=== PATIENT | male | born 1945 | race Caucasian/White ===

== ENCOUNTER 2021-03-13 18:53 | Observation (INO) | payer MEDICARE, BC ==
[~2021-03-13] VITALS: Ht 175.3 cm; Wt 84.7 kg
[~2021-03-13 18:53] MED LIST: ALPHA LIPOIC A200 MG PO; ANTIVERT 25MG25 MG PO; ASPIR-LOW81 MG PO; ASPIR-LOX325 MG PO; ASPIRIN 81M81 MG/TA2 PO; COZAAR 50MG50 MG/TAB PO; DIOVAN80 M1 PO; EPA FISH OIL1000 MG PO; FISH OIL CONC1000 MG PO; FORTAMET1000 MG PO; GLUCOTROL10 MG PO; LEVOTHYROXINE0.1 MG PO; LIPITOR20 MG PO; LOFIBRA200 MG PO; LOPRESSOR 225 MG/TAB PO; MULTIPLE VITAMI1 TAB PO; MVI; PAXIL 10MG10 MG PO; PHENERGAN 25 TA25 MG PO; PHENERGAN25 MG RC; PRAVASTATIN40 MG PO; XANAX0.25 MG PO
[2021-03-13] MEDS ORDERED: LEVOXYL0.1 MG PO (21:22)
[2021-03-13] MEDS ORDERED: TRADJENTA5 MG PO (21:23)
[2021-03-13] MEDS ORDERED: NORVASC 5MG5 MG/TAB PO (21:23)
[2021-03-13] MEDS ORDERED: TRESIBA FL100 UNIT/1 SQ ×2 (21:23→21:59)
[2021-03-13] MEDS ORDERED: LIPITOR 10MG10 MG PO (21:23)
[2021-03-13] MEDS ORDERED: COZAAR100 MG PO (21:24)
[2021-03-13] MEDS ORDERED: TOPROL XL100 MG PO (21:24)
[2021-03-13] MEDS ORDERED: PAXIL 10MG10 MG PO (21:24)
[2021-03-13] MEDS ORDERED: GLUCOTROL 5M5 MG/TAB PO (21:25)
[2021-03-13] MEDS ORDERED: LOFIBRA160 MG PO (21:25)
[2021-03-13] MEDS ORDERED: ALPHA LIPOIC A200 M2 PO (21:57)
[2021-03-13] MEDS ORDERED: OMEGA-3 1000 MG1 CAP PO (21:58)
[2021-03-13] MEDS ORDERED: VITAMIN D31000 I1 PO (21:58)
[2021-03-13] MEDS ORDERED: VITAMIN B12 1541 TAB PO (21:59)
[2021-03-13 22:00] VITALS: BP 148/64; PULSE 72; TEMP 98.7
--- NOTE | 2021-03-13 22:01 | NUR ---
NO CATHETER CARE, NO CATHETER PLACED AT THIS TIME.
[2021-03-13 22:30] VITALS: BP 144/61; PULSE 65
[2021-03-13 23:14] LABS: PROTHROMBIN TIME 11.5 SECONDS (9.7-12.8)
[2021-03-13 23:17] LABS: PARTIAL THROMBOPLASTIN TIME 27.6 SECONDS (26.0-37.0)
[2021-03-13 23:32] VITALS: BP 132/57; PULSE 59; TEMP 98
[2021-03-13 23:34] LABS: TROPONIN-I 0.07 ng/mL (0.000-0.035)
[2021-03-14] VITALS (14 sets, daily range): BP systolic 117–142; BP diastolic 47–69; PULSE 51–68; TEMP 97.3–98.2
--- NOTE | 2021-03-14 00:01 | NUR ---
ADMISSION COMPLETED. PT IS COMPLAINING OF CONTINUING JAW PAIN THAT FEELS "LIKE I HAVE BEEN GRINDING MY TEETH." RATED 3/10. PT HAS LEATHERY SKIN IN RIGHT LEG, BROWN, DRY. PT HAS REDDENED FEET, COOL TO TOUCH. PT CAP REFILL <3S AND PUSLSES 2+ DORSALIS PEDIS AND POSTERIOR TIBIAL BILATERALLY. PT ORIENTED TO ROOM AND CALL LIGHT WITHIN REACH.
--- NOTE | 2021-03-14 01:11 | NUR ---
PT CONTINUING TO REPORT JAW PAIN, 09/25. PT DOES NOT APPEAR IN DISTRESS, VITAL SIGNS STABLE. THIS RN NOTIFIED CARMEN, EMBROIDERY FINISHER. NO FURTHER INTERVENTION AT THIS TIME. WILL CONTINUE TO MONITOR.
--- NOTE | 2021-03-14 01:48 | NUR ---
CARMEN PAULINO NP NOTIFIED OF CRITICAL TROPONIN VALUE. INSTRUCTED TO CONTINUE TO MONITOR AND HAVE TROPONIN REDRAWN AT 0500.
--- NOTE | 2021-03-14 05:37 | NUR ---
PT CONTINUING ON PLAN OF CARE. PT MAINTAINED NPO STATUS AFTER MIDNIGHT. PT PAIN MANAGED WITH IV PAIN MEDICATION PER ORDERS, AND NITRO PASTE. PT ABLE TO EXPRESS NEEDS AND CONVERSE FREELY. PT CURRENTLY ON HEPARIN GTT WITH CONTINUOUS MONITORING PER PROTOCOL. PT FREE FROM INJURY THIS SHIFT.
--- NOTE | 2021-03-14 08:05 | NUR ---
Assessment completed, alert/oriented, vital signs stable, patient continues to have constant sternal chest pain that radiates up into his jaw that he rates 5/10, he describes SOA that is a burning sensation, he is on 2L. 02 and sats WNL, lungs CTA throughout, heart RRR/ SR on tele, heparin Gtt per protocol and Nitro paste in place, he is getting an ECHO now and plans for possible heart cath today, blood sugars are in control, patient reports chronic neuropathy, distal pulses are palpable, no edema observed, patient is NPO and verbalized understanding of plan of care
[2021-03-14 08:27] LABS: BASO % 0.5 % (0.0-2.0); EOS # 0.1 (0.0-0.7); EOS % 2.1 % (0-4.0); GRAN # 3.6 (1.4-6.5); GRAN % 56.7 % (42.2-75.2); HEMATOCRIT 37.5 % (42.0-52.0); HEMOGLOBIN 11.9 g/dl (13.5-18.0); LYMPH % 31.4 % (20.0-51.0); MEAN CELL VOLUME 91 fl (80.0-100.0); MEAN CORPUSCULAR HEMOGLOBIN 29 pg (27.0-31.0); MEAN CORPUSCULAR HGB CONC 32 g/dl (33.0-37.0); MEAN PLATELET VOLUME 11.9 fl (7.4-10.4); MONO # 0.6 (0.1-0.6); PLATELET COUNT 202 K/mm3 (130-400); RED BLOOD COUNT 4.13 M/mm3 (4.20-5.60); REDCELL DISTRIBUTION WIDTH-CV 13.5 % (11.5-14.5)
[2021-03-14 08:41] LABS: CHOLESTEROL RISK RATIO 5.1
[2021-03-14 08:43] LABS: CALCIUM 8.8 mg/dL (8.4-10.2); CREATININE, serum 1.3 (0.66-1.25); POTASSIUM 4.8 mmol/L (3.4-5.0)
--- NOTE | 2021-03-14 09:18 | NUR ---
hepXa 0.57, decrease by 100un/hr, now TRA 900un (9ml/hr), recheck Xa @ 1600
[2021-03-14 09:20] LABS: TROPONIN-I 0.094 ng/mL (0.000-0.035)
--- NOTE | 2021-03-14 11:27 | NUR ---
pediatric social worker met with patient and spouse to discuss discharge planning. Patient plans to return home where he has been independent with his activities of daily living. Patient's primary care provider is Dr Peñaloza and patient denies difficulty obtaining his prescriptions. Patient has advance directives at his tax attorney's office. Worker contacted tax attorney's office and obtained patient permission to have advance directives faxed to the hospital.
--- NOTE | 2021-03-14 11:43 | NUR ---
footwear factory worker placed patient's Living Will and durable power of attorney at law for health care, naming his spouse, on patient's chart.
--- NOTE | 2021-03-14 11:47 | NUR ---
Correction: Patient's primary care provider is Dr Peña.
[2021-03-14 12:25] LABS: INR 1.1 (0.8-3.0); PROTHROMBIN TIME 12.4 SECONDS (9.7-12.8)
[2021-03-14 12:28] LABS: PARTIAL THROMBOPLASTIN TIME 70.4 SECONDS (26.0-37.0)
--- NOTE | 2021-03-14 19:30 | NUR ---
PATIENT TAKEN TO [facility] BY [facility]
--- NOTE | 2021-03-14 19:41 | NUR ---
SEE MERGE DOCUMENTATION FOR MEDICATION ADMINISTRATION AND INTRA/POST PROCEDURE SEDATION ASSESSMENTS.
--- NOTE | 2021-03-14 21:00 | NUR ---
PATIENT WAS RECEIVED FROM [facility] AO. DENIES PAIN.PUNCTURE SITE CDI.SAFETY MEASURES IN PLACE.PATIENT IS LYING FLAT IN BED.SAFETY MEASURES IN PLACE.NO OTHER NEEDS AT THIS TIME.
--- NOTE | 2021-03-14 21:24 | NUR ---
Pt transferred to floor. Angiomax to infuse 4 hrs post-cath. Pt previously on Heparin gtt. MD contacted by this RN regarding Heparin; orders received that Heparin discontinued. Read back and verified. Order relayed to patient's primary RN.
--- NOTE | 2021-03-14 21:30 | NUR ---
PATIENT RECEIVED FROM [facility]
--- NOTE | 2021-03-14 21:40 | NUR ---
INFORMED BY [facility] RN THAT THE DOCTOR DC'D HEPARIN.HEPARIN ORDER STILL ACTIVE.
[2021-03-15] VITALS (9 sets, daily range): BP systolic 92–139; BP diastolic 33–77; PULSE 53–67; TEMP 97.5–98.7
--- NOTE | 2021-03-15 00:55 | NUR ---
ANGIOMAX IV STOPPED.
--- NOTE | 2021-03-15 05:10 | NUR ---
PATIENT HAD A CALM NIGHT.DENIES PAIN.RT FEMORAL PUNCTURE IS CDI.NO HEMATOMA NOTED.SAFETY MEASURES IN PLACE.NO OTHER NEEDS AT THIS TIME.
[2021-03-15 06:57] LABS: BASO % 0.4 % (0.0-2.0); EOS # 0.1 (0.0-0.7); EOS % 1.9 % (0-4.0); GRAN # 4.7 (1.4-6.5); GRAN % 66.8 % (42.2-75.2); HEMATOCRIT 37.7 % (42.0-52.0); HEMOGLOBIN 12.1 g/dl (13.5-18.0); LYMPH # 1.5 (1.2-3.4); LYMPH % 21.8 % (20.0-51.0); MEAN CELL VOLUME 92 fl (80.0-100.0); MEAN CORPUSCULAR HEMOGLOBIN 30 pg (27.0-31.0); MEAN CORPUSCULAR HGB CONC 32 g/dl (33.0-37.0); MONO # 0.6 (0.1-0.6); MONO % 8.8 % (1.7-9.3); PLATELET COUNT 221 K/mm3 (130-400); REDCELL DISTRIBUTION WIDTH-CV 13.4 % (11.5-14.5)
[2021-03-15 07:12] LABS: CALCIUM 8.6 mg/dL (8.4-10.2); CREATININE, serum 1.47 (0.66-1.25); POTASSIUM 3.9 mmol/L (3.4-5.0)
--- NOTE | 2021-03-15 08:00 | NUR ---
Patient sitting up in the bed A&Ox3. VSS. Denies pain and discomfort. Is wanting to know when the doctor will come by and when he can go home. Right femoral site CDI. Patient independent in the room. Call light within reach
[2021-03-15] MEDS ORDERED: NITROSTAT0.4 MG/TAB SL (14:02)
[2021-03-15] MEDS ORDERED: PLAVIX 75MG TAB75 MG PO (14:02)
--- NOTE | 2021-03-15 14:56 | NUR ---
Discharge paperwork reviewed with the patient. Patient verbalized an understanding to follow doctors orders. IV removed tip intact. Gauze and coban applied. No further needs expressed from the patient. Discharge paperwork and personal belongings with the patient. Patient ambulated independently to the ER entrance
== END 2021-03-15 14:56 | disposition home or self-care (01) ==
LOC: MEDICAL 18:53
PROVIDERS: Nurse Practitioner; Nurse Practitioner Family; Physician Assistant
DX: I21.4 Non-ST elevation (NSTEMI) myocardial infarction (principal); N17.9 Acute kidney failure, unspecified; R42 Dizziness and giddiness; R07.89 Other chest pain; R06.02 Shortness of breath; I10 Essential (primary) hypertension; E78.5 Hyperlipidemia, unspecified; E11.9 Type 2 diabetes mellitus without complications; E03.9 Hypothyroidism, unspecified; Z79.899 Other long term (current) drug therapy; Z79.82 Long term (current) use of aspirin; Z87.891 Personal history of nicotine dependence; Z90.89 Acquired absence of other organs; Z79.4 Long term (current) use of insulin; Z79.02 Long term (current) use of antithrombotics/antiplatelets; Z79.890 Hormone replacement therapy; Z80.3 Family history of malignant neoplasm of breast; Z79.891 Long term (current) use of opiate analgesic
CPT/HCPCS: 99232-AI; C1725; C1757; C1760; C1769; C1874; C1887; C1894; C9600; G0378; J0583; J1644; J1815; J1940; J2250; J2270; J3010; J7030

== ENCOUNTER 2021-10-04 18:05 | Inpatient (IN) | payer MEDICARE, BC ==
[~2021-10-04] VITALS: Ht 175.3 cm; Wt 86.5 kg
[~2021-10-04 18:05] MED LIST changes: +ALPHA LIPOIC A200 M2 PO; +COZAAR100 MG PO; +GLUCOTROL 5M5 MG/TAB PO; +LEVOXYL0.1 MG PO; +LIPITOR 10MG10 MG PO; +LOFIBRA160 MG PO; +NITROSTAT0.4 MG/TAB SL; +NORVASC 5MG5 MG/TAB PO; +OMEGA-3 1000 MG1 CAP PO; +PLAVIX 75MG TAB75 MG PO; +TOPROL XL100 MG PO; +TRADJENTA5 MG PO; +TRESIBA FL100 UNIT/1 SQ; +VITAMIN B12 1541 TAB PO; +VITAMIN D31000 I1 PO
[2021-10-04 18:42] LABS: BASO % 0.4 % (0.0-2.0); EOS # 0.2 K/mm3 (0.0-0.7); GRAN # 3.1 K/mm3 (1.4-6.5); GRAN % 60.5 % (42.2-75.2); HEMATOCRIT 39.7 % (42.0-52.0); LYMPH # 1.4 K/mm3 (1.2-3.4); LYMPH % 27.6 % (20.0-51.0); MEAN CELL VOLUME 86 fl (80.0-100.0); MEAN CORPUSCULAR HEMOGLOBIN 28 pg (27-31); MEAN CORPUSCULAR HGB CONC 33 g/dl (33.0-37.0); MONO # 0.4 K/mm3 (0.1-0.6); MONO % 8.1 % (1.7-9.3); PLATELET COUNT 209 K/mm3 (130-400); RED BLOOD COUNT 4.61 M/mm3 (4.20-5.60); REDCELL DISTRIBUTION WIDTH-CV 13.1 % (11.5-14.5)
[2021-10-04 18:58] LABS: ANION GAP 11 mmol/L (7-16); BLOOD UREA NITROGEN 23 mg/dL (8-26); CALCIUM 9.2 mg/dL (8.4-10.2); CARBON DIOXIDE 22 mmol/L (23-31); CHLORIDE 109 mmol/L (98-107); GLUCOSE 249 mg/dL (70-99); POTASSIUM 4.4 mmol/L (3.5-4.5); SODIUM 142 mmol/L (136-145)
[2021-10-04 19:08] LABS: TROPONIN-I < 0.010 ng/mL (0.00-0.033)
[2021-10-04 19:58] LABS: INR 1.1 (0.8-3.0); PROTHROMBIN TIME 11.7 SECONDS (9.7-12.8)
[2021-10-04 20:00] LABS: PARTIAL THROMBOPLASTIN TIME 27.3 SECONDS (26.0-37.0)
--- NOTE | 2021-10-04 21:30 | NUR ---
Arrived to room 324 via wheelchair from ED. Admission assessment complete. Oriented to room and policy. A&Ox3. VS stable. Denies pain/nausea/shortness of breath. INT to right AC flushes well. R hand 22g with heparin at 9.5ml/hr. TELE reporting NSR. On room air with adequate saturations. Plan of care discussed for this shift to include meds/lab draw/calling for questions/concerns. Verbalizes understanding/denies questions concerns. Call light in reach. Will monitor.
[2021-10-04 21:35] VITALS: BP 162/65; PULSE 66; TEMP 97.9
[2021-10-04 23:53] VITALS: BP 148/60; PULSE 60; TEMP 98.5
--- NOTE | 2021-10-05 02:00 | NUR ---
Heparin decreased to 850 units/hr at this time per protocol.
[2021-10-05 03:52] VITALS: BP 142/69; PULSE 55; TEMP 97.6
--- NOTE | 2021-10-05 05:00 | NUR ---
Patient had an uneventful night. Denied chest pain/nausea/shortness of breath. VS stable. TELE reports SB dys. Heparin infusing at 8.5ml/hr to right hand 22g. On room air. Denies current needs. Call light in reach. Will monitor.
[2021-10-05 06:28] LABS: BASO % 0.4 % (0.0-2.0); EOS # 0.2 K/mm3 (0.0-0.7); EOS % 3.4 % (0.0-4.0); GRAN # 2.5 K/mm3 (1.4-6.5); GRAN % 50.2 % (42.2-75.2); HEMOGLOBIN 12.5 g/dl (13.5-18.0); LYMPH # 1.8 K/mm3 (1.2-3.4); LYMPH % 35.6 % (20.0-51.0); MEAN CELL VOLUME 89 fl (80.0-100.0); MEAN CORPUSCULAR HEMOGLOBIN 29 pg (27-31); MEAN CORPUSCULAR HGB CONC 32 g/dl (33.0-37.0); MEAN PLATELET VOLUME 11.4 fl (7.4-10.4); MONO # 0.5 K/mm3 (0.1-0.6); MONO % 9.8 % (1.7-9.3); PLATELET COUNT 199 K/mm3 (130-400); RED BLOOD COUNT 4.39 M/mm3 (4.20-5.60); REDCELL DISTRIBUTION WIDTH-CV 12.8 % (11.5-14.5)
[2021-10-05 06:39] LABS: BLOOD UREA NITROGEN 19 mg/dL (8-26); CALCIUM 8.9 mg/dL (8.4-10.2); CARBON DIOXIDE 21 mmol/L (23-31); CHLORIDE 112 mmol/L (98-107); CREATININE, serum 1.27 mg/dL (0.72-1.25); GLUCOSE 98 mg/dL (70-99); POTASSIUM 3.8 mmol/L (3.5-4.5); SODIUM 143 mmol/L (136-145)
[2021-10-05 06:42] LABS: ANION GAP 10 mmol/L (7-16)
[2021-10-05 06:52] LABS: TROPONIN-I < 0.010 ng/mL (0.00-0.033)
[2021-10-05 07:50] VITALS: BP 150/55; PULSE 64; TEMP 97.5
--- NOTE | 2021-10-05 08:00 | NUR ---
PATIENT IS A&O. VSS ON TELE. DENIES CHEST PAIN, SOA OR NAUSEA. HEPARIN GTT INFUSING VIA PUMP INTO RIGHT AC IV. RIGHT WRIST IV TO INT. SITTING UP IN BED WITH BREAKFAST TRAY. AM BS 96, NO SSI REQUIRED. AM MEDS GIVEN. HEAD TO TOE ASSESSMENT COMPLETE. NO OTHER NEEDS AT THIS TIME. CALL LIGHT IN REACH.
--- NOTE | 2021-10-05 11:10 | NUR ---
DR.THAPA OBRIEN, SEE ORDERS FOR HEART CATH IN AM
[2021-10-05 11:21] VITALS: BP 141/47; PULSE 59; TEMP 98.5
--- NOTE | 2021-10-05 11:42 | NUR ---
pressroom worker met with patient to discuss discharge plan. Patient currently lives at home with his Mira ([phone]). He is independent with his ADL's and does not utilize any DME to assist with ambulation. 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 Patient proceeds to show pictures of both past completed projects and current projects in process. He has no oxygen needs at home. PCP is Dr. Peña at [facility] in [place] and he keerthizes [facility] in [place] for medications with no cost difficulty. Patient reports that he brought in a copy of his DPOA-HC last night to the ER. Upon looking into his chart, the copy cannot be found. Patient is planning on have a heart cath on Wednesday. Informed him we will follow along and help establish any needs he may have. Discharge plan: Home
--- NOTE | 2021-10-05 13:00 | NUR ---
HEPXA REQUIRES NO CHANGE TO HEPARIN GTT, SEE MAR
[2021-10-05 15:58] VITALS: BP 132/59; PULSE 57; TEMP 97.6
--- NOTE | 2021-10-05 19:26 | NUR ---
Hep Xa at 0.29, no change to rate. Pt. has had 2 results wnl. Will re check in am
[2021-10-05 21:10] VITALS: BP 152/60; PULSE 57; TEMP 98.1
--- NOTE | 2021-10-05 21:40 | NUR ---
Pt. sitting up in bed. Pt. is A&OX3, assessment complete. INT to rt. wrist patent. IV to rt. ac with heparin gtt infusing per orders. Pt. denies pain or other needs, call light within reach.
[2021-10-05 23:34] VITALS: BP 137/56; PULSE 59; TEMP 98
[2021-10-06] VITALS (13 sets, daily range): BP systolic 118–138; BP diastolic 48–58; PULSE 49–60; TEMP 97.4–98
[2021-10-06 05:39] LABS: BASO % 0.4 % (0.0-2.0); EOS # 0.2 K/mm3 (0.0-0.7); EOS % 3.2 % (0.0-4.0); GRAN # 2.8 K/mm3 (1.4-6.5); GRAN % 60.5 % (42.2-75.2); HEMOGLOBIN 12.9 g/dl (13.5-18.0); LYMPH # 1.3 K/mm3 (1.2-3.4); LYMPH % 27.3 % (20.0-51.0); MEAN CELL VOLUME 89 fl (80.0-100.0); MEAN CORPUSCULAR HEMOGLOBIN 29 pg (27-31); MEAN CORPUSCULAR HGB CONC 32 g/dl (33.0-37.0); MEAN PLATELET VOLUME 11.1 fl (7.4-10.4); MONO # 0.4 K/mm3 (0.1-0.6); MONO % 8.4 % (1.7-9.3); PLATELET COUNT 211 K/mm3 (130-400); RED BLOOD COUNT 4.52 M/mm3 (4.20-5.60); REDCELL DISTRIBUTION WIDTH-CV 12.8 % (11.5-14.5)
[2021-10-06 05:54] LABS: ALBUMIN 3.4 gm/dL (3.4-4.8); CALCIUM 9.4 mg/dL (8.4-10.2); CREATININE, serum 1.58 mg/dL (0.72-1.25); MAGNESIUM 1.9 mg/dL (1.6-2.6); PHOSPHOROUS 3.3 mg/dL (2.3-4.7); POTASSIUM 3.9 mmol/L (3.5-4.5)
--- NOTE | 2021-10-06 09:00 | NUR ---
Assessment completed, alert/oriented, vital signs stable, denies any chest pain or discomfort, slightly bradycardic at time and reports he will get lightheaded with position changes sometimes, heaert RRR at this time, SR on tele, distal pulses are palapble, troponin negative , on heparin gtt and plans for heart cath later today, lungsCTA/ no resp.difficulty noted, NPO, mornin gmeds given, he denies other needs at this time
--- NOTE | 2021-10-06 11:30 | NUR ---
Patient is going to wood preserving plant laborer at this time
--- NOTE | 2021-10-06 13:25 | NUR ---
Patient arrived back to room 324 from laboratory chemist at this time, he is alert/oriented, vital signs stable, right radial access site/ TR band in place with 12cc placed and inflated at 1209, will continue to monitor
--- NOTE | 2021-10-06 13:35 | NUR ---
First visit from the hydrogen cell tender. No needs right now.
--- NOTE | 2021-10-06 13:50 | NUR ---
patient continue to do well post cath / PCI, vital signs stable, removed 3cc from TR band at this time
--- NOTE | 2021-10-06 15:37 | NUR ---
TR band deflated, no bleeding or oozing noted, vital signs stable, will continue to monitor
--- NOTE | 2021-10-06 17:20 | NUR ---
Patient doing well, vital signs s/p heart cath with PCI stable, right radial compression band removed no signd of bleeding or oozing, will cotninue to monitor
--- NOTE | 2021-10-06 20:50 | NUR ---
Pt. sitting up in bed. Pt. is A&OX3, assessment complete. INT to rt. ac and rt hand patent. Rt. radial site with bandaid, cdi. Pt. denies pain or other needs, call light within reach.
[2021-10-07 00:50] VITALS: BP 148/56; PULSE 69; TEMP 98.7
[2021-10-07 05:53] VITALS: BP 146/52; PULSE 56; TEMP 97.4
[2021-10-07 06:46] LABS: BASO % 0.1 % (0.0-2.0); GRAN # 8.6 K/mm3 (1.4-6.5); GRAN % 84.4 % (42.2-75.2); HEMATOCRIT 38.4 % (42.0-52.0); HEMOGLOBIN 12.9 g/dl (13.5-18.0); LYMPH # 1.2 K/mm3 (1.2-3.4); LYMPH % 11.3 % (20.0-51.0); MEAN CORPUSCULAR HEMOGLOBIN 28 pg (27-31); MEAN CORPUSCULAR HGB CONC 34 g/dl (33.0-37.0); MEAN PLATELET VOLUME 11.4 fl (7.4-10.4); MONO # 0.4 K/mm3 (0.1-0.6); MONO % 3.9 % (1.7-9.3); PLATELET COUNT 233 K/mm3 (130-400); RED BLOOD COUNT 4.55 M/mm3 (4.20-5.60); REDCELL DISTRIBUTION WIDTH-CV 12.6 % (11.5-14.5)
[2021-10-07 06:49] LABS: MEAN CELL VOLUME 84 fl (80.0-100.0)
[2021-10-07 06:54] LABS: ALBUMIN 3.5 gm/dL (3.4-4.8); CALCIUM 9.6 mg/dL (8.4-10.2); CREATININE, serum 1.65 mg/dL (0.72-1.25); MAGNESIUM 1.7 mg/dL (1.6-2.6); PHOSPHOROUS 2.7 mg/dL (2.3-4.7); POTASSIUM 3.9 mmol/L (3.5-4.5)
[2021-10-07 07:36] VITALS: BP 148/72; PULSE 61; TEMP 98
--- NOTE | 2021-10-07 08:00 | NUR ---
PATIENT IS A&O AND SITTING UP IN BEDSIDE CHAIR WITH BREAKFAST TRAY. VSS WITH TELE INPLACE. NO C/O CHEST PAIN OR NAUSEA. RIGHT AC AND RIGHT HAND IV'S TO INT. RIGHT RADIAL SITE IS CD&I WITH BANDAID. HEAD TO TOE ASSESSMENT COMPLETE. AM MEDS GIVEN. PATIENT HOPING TO DISCHARGE HOME TODAY. NO OTHER NEEDS. CALL LIGHT IN REACH.
[2021-10-07 11:16] VITALS: BP 139/52; PULSE 63; TEMP 98
[2021-10-07] MEDS ORDERED: LIPITOR 80MG80 MG PO (11:39)
--- NOTE | 2021-10-07 11:42 | NUR ---
The patient is to discharge back home with his today, 10/07. SW met with the patient and presented and read the IM form outloud to him. The patient verbalized understanding and signed the form. He declined a copy. No additional needs at this time.
--- NOTE | 2021-10-07 13:36 | NUR ---
PATIENT'S HERE AND HE IS READY TO DISCHARGE HOME. GAVE DISCHARGE INSTRUCTIONS, E-SCRIPT SENT, SCRIPT FOR OUTPATIENT STUDY GIVEN, AND DISCHARGE APTS DISCUSSED. DC'D IV SITES X2 AND COVERED SITES WITH JAX & SAURABH. TELE DC'D. PATIENT IS DRESSED, PACKED AND ESCORTED OUT VIA AMBULATORY TO PERSONAL VEHICLE.
== END 2021-10-07 13:36 | disposition home or self-care (01) | DRG 246 ==
LOC: COL.ER 18:05 → SURG 19:34 → COL.ER 19:34 → SURG 19:34
PROVIDERS: Emergency Medicine; Internal Medicine; Student in an Organized Health Care Education/Training Program; ADMIT Student in an Organized Health Care Education/Training Program
PROC: 027034Z Dilation of Coronary Artery, One Artery with Drug-eluting Intraluminal Device, Percutaneous Approach (ICD-10-PCS; principal; 2021-10-04)
PROC: 4A023N7 Measurement of Cardiac Sampling and Pressure, Left Heart, Percutaneous Approach (ICD-10-PCS; 2021-10-04)
PROC: B2111ZZ Fluoroscopy of Multiple Coronary Arteries using Low Osmolar Contrast (ICD-10-PCS; 2021-10-04)
DX: I25.110 Atherosclerotic heart disease of native coronary artery with unstable angina pectoris (principal); I50.21 Acute systolic (congestive) heart failure; N17.9 Acute kidney failure, unspecified; I13.0 Hypertensive heart and chronic kidney disease with heart failure and stage 1 through stage 4 chronic kidney disease, or unspecified chronic kidney disease; D64.9 Anemia, unspecified; E78.5 Hyperlipidemia, unspecified; E03.9 Hypothyroidism, unspecified; N18.9 Chronic kidney disease, unspecified; E11.22 Type 2 diabetes mellitus with diabetic chronic kidney disease; F32.A Depression, unspecified; I08.0 Rheumatic disorders of both mitral and aortic valves; Z20.822 Contact with and (suspected) exposure to COVID-19; I25.2 Old myocardial infarction; Z95.5 Presence of coronary angioplasty implant and graft; Z79.02 Long term (current) use of antithrombotics/antiplatelets; Z79.82 Long term (current) use of aspirin; Z79.4 Long term (current) use of insulin; Z87.891 Personal history of nicotine dependence; Z23 Encounter for immunization
CPT/HCPCS: 99223-AI; 99232-AI; 99233-AI; 99239; C1725; C1769; C1874; C1887; C9600; J0583; J1200; J1644; J1815; J2250; J2930; J3010; J7030; Q9967